=== PATIENT | male | born 1990 | race Caucasian/White ===

== ENCOUNTER 2017-02-25 18:47 | Inpatient (IN) | payer OTHER ==
--- NOTE | ~2017-02-25 | DS ---
Unit #: [id number] #: [id number] Patient: KASSI MORELAND [id number] [place] [address] [id number] I MR#: [id number] NAME: KASSI MORELAND ROOM: P184 Age: 27 Sex: M Admission Date: 02/25/2017 : 1990 Discharge Date: 02/28/2017 Attending Physician: Feliciano Romo M.D. Primary Care Physician: Primary Care Physician No DISCHARGE SUMMARY REASON FOR ADMISSION The patient is a 27-year-old single white male, admitted to the [facility] unit with a history of polysubstance dependence including abuse of methamphetamine, heroin, and benzodiazepines. HOSPITAL COURSE The patient was admitted to the [facility] unit and placed on routine detoxification protocol to cover opioids and benzodiazepines. He did have some psychosis on 02/27/2017 possibly thought to be related to delirium tremens or substance-induced psychosis. The symptoms had cleared. By 02/28/2017, the patient requested discharge from the hospital. He was at that point exhibiting no signs or symptoms of withdrawal and appeared to be at or near his psychiatric baseline. As per his request, discharge was ordered. FINAL DIAGNOSES Methamphetamine use disorder; opioid use disorder; sedative hypnotic use disorder. DISPOSITION ON DISCHARGE The patient is discharged on no psychotropic or other medications. FOLLOWUP Followup will take place through the auspices of community mental health resources. PROGNOSIS The patient's prognosis is considered fair. Dictated by... Feliciano Romo M.D. CB/malcolml TD: 02/28/2017 16:00 JOB #: [id number] Unit #: [id number] #: [id number] Patient: KASSI MORELAND DISCHARGE SUMMARY Page 1 of 1 X Feliciano Romo MD X DISCHARGE SUMMARY
--- NOTE | ~2017-02-25 | HP ---
Unit #: [id number] #: [id number] Patient: DEONTE MORELAND [id number] [place] [address] [id number] MR#: [id number] NAME: DEONTE MORELAND ROOM: P184 Age: 27 Sex: M Admission Date: 02/25/2017 : 1990 Attending Physician: Feliciano Romo M.D. Admitting Physician: Feliciano Romo M.D. Primary Care Physician: Primary Care Physician No HISTORY AND PHYSICAL HISTORY OF PRESENT ILLNESS Deonte is a 27 year old admitted to [facility] because of his continued drug use. He has had numerous admissions to this facility for treatment of the same. PAST MEDICAL HISTORY 1. Long history of polysubstance abuse to include IV heroin, benzodiazepines and methamphetamine. 2. History of withdrawal seizures. PAST SURGICAL HISTORY Nothing reported. ALLERGIES No known drug allergies. Eggs. SOCIAL HISTORY He smokes 1 pack per day. Drinks alcohol frequently. Has a long history of poly-illicit substance abuse to include IV drugs. FAMILY HISTORY Medically noncontributory. REVIEW OF SYSTEMS CONSTITUTIONAL: No fever or chills. HEENT: Denies any sore throat, ear pain or runny nose. CARDIOVASCULAR: Denies chest pain, irregular heart rhythm or palpitations. CHEST: Denies shortness of breath or cough. No hemoptysis. GASTROINTESTINAL: Denies nausea, vomiting, diarrhea or chronic constipation. ENDOCRINE: Denies history of increased thirst or urination. No recent significant weight loss or gain. GENITOURINARY: Denies dysuria, frequency, or hematuria. SKIN: Denies any rashes. HEMATOLOGIC: Denies history of increased bleeding or bruising. MUSCULOSKELETAL: Denies any hot, swollen joints. No generalized muscle pain. NEUROLOGIC: Denies problems with vision or speech. No frequent, severe headaches. No numbness, tingling or weakness in any extremities. Denies loss of bladder or bowel control. CURRENT MEDICATIONS Detox protocol. Unit #: [id number] #: [id number] Patient: DEONTE MORELAND PHYSICAL EXAMINATION GENERAL: Alert, well-nourished, in no apparent distress. VITAL SIGNS: Blood pressure 165/85, heart rate 80, respirations 16, temperature 98.6. WEIGHT: 200. HEIGHT: 6 feet 2 inches. SKIN: Warm and dry without rash or lesion. HEENT: Normocephalic. TMs not viewed. Oral and nasal passages clear. Conjunctivae clear. PERRLA. EOMs intact. NECK: Supple without lymphadenopathy or thyromegaly. HEART: Regular rate and rhythm without murmur. LUNGS: Clear. ABDOMEN: Soft, nontender. : Not done. EXTREMITIES: No evidence of cyanosis, clubbing or edema. Moves all without focal deficit. NEUROLOGICAL: Grossly within normal limits. Cranial Nerves: II: Visual sauer are intact. III, IV AND : Extraocular movements are intact. Pupils are equal, round and reactive to light. V: Facial sensation is grossly normal. VII: Facial movements and expression are normal. VIII: Auditory acuity grossly intact. IX, X: Uvula is midline. Phonation is normal. XI: Patient shrugs shoulders and turns head normally. XII: Tongue protrudes in the midline. Sensory and Motor Function: Sensory and motor sensation is grossly normal. Motor: moves all extremities well. Coordination: Gait is normal. Deep Tendon Reflexes: Intact. IMPRESSION Psychiatric admission. RECOMMENDATIONS PSYCHIATRIC: Per psychiatrist. MEDICAL: See no contraindications to participate in facility's activities. MEDICAL PROGNOSIS Good. MEDICAL CONDITION Stable. Dictated by... Kushal HawkAAnthony-Gena. for Madelyn Jimenez/jody TD: 02/26/2017 18:45 JOB #: [id number] Unit #: [id number] #: [id number] Patient: DEONTE MORELAND HISTORY AND PHYSICAL Page 1 of 1 X Tosin Mckeon HISTORY AND PHYSICAL
--- NOTE | ~2017-02-25 | PA ---
Unit #: [id number] #: [id number] Patient: KASSI MORELAND [id number] [place] [address] [id number] I MR#: [id number] NAME: KASSI MORELNAD ROOM: P184 Age: 27 Sex: M Admission Date: 02/25/2017 : 1990 Date of Assessment: 02/26/2017 Attending Physician: Feliciano Romo M.D. Admitting Physician: Feliciano Romo M.D. Primary Care Physician: Primary Care Physician No PSYCHIATRIC ASSESSMENT IDENTIFYING INFORMATION The patient is a 27-year-old white male admitted with recent relapse of substance use. INFORMANT(S) Patient. RELIABILITY Good. CHIEF COMPLAINT I relapsed. HISTORY OF PRESENT ILLNESS The patient is a 27-year-old white male well-known to this facility from multiple previous admissions to this facility. He stated that he had maintained sobriety up until 2 weeks ago when "somebody brought some stuff in." He states that he has been getting high ever since and is fearful that he will "lose everything" if he continues to use. He reports that he has been abusing alcohol, sedative/hypnotics, methamphetamine and heroin. The patient is currently denying suicide ideation. He [place] go [place] [facility] following completion of detox. For more complete history of present illness, please refer to previous dictated notes. PAST PSYCHIATRIC HISTORY Reviewed, no changes. FAMILY HISTORY/SOCIAL HISTORY Reviewed, no changes. MEDICAL HISTORY Reviewed, no changes. MEDICATION HISTORY None. ALLERGIES Thorazine, Haldol, latex, Risperdal. MENTAL STATUS EXAM At this time, reveals the patient to be a well-developed, well-nourished white male appearing stated age. He is in no apparent physical distress at time of examination. He is awake, alert, oriented in all spheres. His Unit #: [id number] #: [id number] Patient: KASSI MORELAND mood is mildly dysphoric. His affect congruent. Speech is generally relevant and coherent. There are no gross deficits in memory or cognition noted. Intelligence is judged to be in the average range based on fund of knowledge. The patient is cooperative throughout the interview. The patient reports positive suicidal ideation with plan to overdose. He denies homicidal ideation. He denies any psychotic symptoms. His judgement and insight appear to be intact. ASSETS AND LIABILITIES Patient's assets, motivation for change. Liabilities, lack of resources. ADMITTING DIAGNOSES 1. Dysthymic disorder. 2. Opioid use disorder. 3. Methamphetamine use disorder. 4. Sedative/hypnotic use disorder. 5. Alcohol use disorder. PSYCHIATRIC PLAN/TREATMENT GOALS The patient remains hospitalized for safety and stabilization. Routine detoxification protocol to cover benzodiazepines, alcohol and opiates have been initiated. The patient will participate in appropriate lira and milieu activities and suicide precautions are in place. ESTIMATED LENGTH OF STAY Five to seven days. Dictated by... Feliciano Romo M.D. DINA/jody TD: 02/26/2017 15:04 JOB #: [id number] PSYCHIATRIC ASSESSMENT Page 1 of 1 X Feliciano Romo MD X PSYCHIATRIC ASSESSMENT
--- NOTE | ~2017-02-25 | PN ---
Unit #: [id number] #: [id number] Patient: KASSI MORELAND [id number] [facility] [address] [place] [address] [id number] I MR#: [id number] NAME: KASSI MORELAND ROOM: P184 Age: 27 Sex: M Admission Date: 02/25/2017 : 1990 Attending Physician: Feliciano Romo M.D. Admitting Physician: Feliciano Romo M.D. Primary Care Physician: Primary Care Physician Lilibeth ORTIZ PROGRESS NOTES DATE 02/27/2017 DISCUSSION The patient is resting comfortably after requiring p.r.n. medication earlier this morning. His detox continues uneventfully and staff reports no management issues, but the patient was so anxious and as stated this morning the p.r.n. medication was required. Dictated by... Feliciano Romo M.D. CB/ti TD: 02/27/2017 15:13 JOB #: [id number] [facility] PROGRESS NOTES Page 1 of 1 X Feliciano Romo MD PROGRESS NOTE
[2017-02-27 09:53] LABS: URINE APPEARANCE TURBID; URINE BILIRUBIN NEG (NEG); URINE BLOOD NEG (NEG); URINE COLOR DK YELLOW; URINE GLUCOSE NEG (NEG); URINE KETONE TRACE (NEG); URINE LEUKOCYTE ESTERASE NEG (NEG); URINE NITRATE NEG (NEG); URINE PROTEIN NEG (NEG); URINE SPECIFIC GRAVITY 1.032 (1.003-1.035)
[2017-02-27 10:43] LABS: AMPHETAMINE POS (NEG); BARBITURATES NEG (NEG); BENZODIAZEPINES POS (NEG); COCAINE NEG (NEG); MARIJUANA NEG (NEG); OPIATES NEG (NEG); TRICYCLIC ANTIDEPRESSANTS NEG (NEG); U METHADONE NEG (NEG)
== END 2017-02-28 14:52 | DRG 897 ==
LOC: P1E 20:21
PROVIDERS: Specialist
PROC: HZ2ZZZZ Detoxification Services for Substance Abuse Treatment (ICD-10-PCS; principal; 2017-02-25)
DX: F11.10 Opioid abuse, uncomplicated (principal); R45.851 Suicidal ideations; F34.1 Dysthymic disorder; F15.10 Other stimulant abuse, uncomplicated; F13.10 Sedative, hypnotic or anxiolytic abuse, uncomplicated; F10.10 Alcohol abuse, uncomplicated; Z88.8 Allergy status to other drugs, medicaments and biological substances; Z91.040 Latex allergy status; F17.210 Nicotine dependence, cigarettes, uncomplicated; Z91.012 Allergy to eggs
CPT/HCPCS: 80307; 81003; 82947

== ENCOUNTER 2017-03-03 | Inpatient (IN) | payer OTHER ==
--- NOTE | ~2017-03-03 | HP ---
Unit #: [id number] #: [id number] Patient: KASSI MORELAND [id number] [place] [address] [id number] I MR#: [id number] NAME: KASSI MORELAND. ROOM: P201 Age: 27 Sex: M Admission Date: 03/03/2017 : 1990 Attending Physician: Feliciano Romo M.D. Admitting Physician: Feliciano Romo M.D. Primary Care Physician: Primary Care Physician No HISTORY AND PHYSICAL The patient is a 27-year-old male, admitted to [address] [place] [address] on 03/03/2017 for drug abuse. He has other admissions to this facility for the same most recently on 02/25/2017. The history and physical from that date was reviewed. No changes need to be made. Dictated by... Yara Reece/sammy TD: 03/04/2017 06:24 JOB #: [id number] HISTORY AND PHYSICAL Page 1 of 1 X SERGIO LOPEZ APRN HISTORY AND PHYSICAL
--- NOTE | ~2017-03-03 | DS ---
Unit #: [id number] #: [id number] Patient: KASSI MORELAND [id number] [facility] [address] [place] [address] [id number] I MR#: [id number] NAME: KASSI MORELAND. ROOM: [facility] Age: 27 Sex: M Admission Date: 03/03/2017 : 1990 Discharge Date: 03/04/2017 Attending Physician: Feliciano Romo M.D. DISCHARGE SUMMARY REASON FOR ADMISSION The patient is a 27-year-old white male, admitted to the [address] [place] [address] after he presented to this facility claiming to be suicidal following a recent discharge. HOSPITAL COURSE The patient was admitted to the [address] [place] [address] and placed on suicide precautions. Because of his recent discharge from the hospital, he was not restarted on any detoxification protocol and was placed on room lockout to assure safety. On 03/04/2017, the patient denied suicidal action and exhibited no signs or symptoms of withdrawal. He requested discharge and it was so ordered. During his stay in the hospital, the patient was diagnosed with an injection site abscess and will complete a 7-day trial of Bactrim following discharge. FINAL DIAGNOSES Opioid use disorder; sedative hypnotic use disorder; methamphetamine use disorder; dysthymic disorder; antisocial personality disorder; injection site abscess. DISPOSITION ON DISCHARGE The patient is discharged on the following medications: Bactrim DS one tablet b.i.d. for 7 days for injection site abscess. DISCHARGE INSTRUCTIONS No dietary or physical restrictions were placed upon the patient at the time of discharge. PROGNOSIS His prognosis remains guarded. Dictated by... Feliciano Romo M.D. CB/jocelin TD: 03/04/2017 14:39 JOB #: [id number] Unit #: [id number] #: [id number] Patient: KASSI MORELAND DISCHARGE SUMMARY Page 1 of 1 X Feliciano Romo MD X DISCHARGE SUMMARY
--- NOTE | ~2017-03-03 | PA ---
Unit #: [id number] #: [id number] Patient: KASSI MORELAND [id number] [place] [address] [id number] I MR#: [id number] NAME: KASSI MORELAND. ROOM: P201 Age: 27 Sex: M Admission Date: 03/03/2017 : 1990 Date of Assessment: 03/03/2017 Attending Physician: Feliciano Romo M.D. Admitting Physician: Feliciano Romo M.D. Primary Care Physician: Primary Care Physician No PSYCHIATRIC ASSESSMENT IDENTIFYING INFORMATION The patient is a 27-year-old white male admitted after he had presented to this facility claiming to be suicidal. CHIEF COMPLAINT "ya man I am suicidal." INFORMANT(S) Patient, reliability is poor. HISTORY OF PRESENT ILLNESS The patient is a 27-year-old white male discharged from this facility on 02/28/2017. At that time he stated to this physician that he planned to go a residential treatment facility in [place] instead he went out and immediately "got high" and has continued to using until his return to this facility early this morning . He is reporting positive suicidal ideation with plan to overdose or jump off of a bridge per his report. He states that in addition to heroin he has been using cocaine and methamphetamine. For more complete history of present illness, please refer to previous dictated notes. PAST PSYCHIATRIC HISTORY Reviewed, no changes. FAMILY HISTORY/SOCIAL HISTORY Reviewed, no changes. MEDICAL HISTORY Reviewed, no changes. MEDICATION Albuterol. ALLERGIES Chlorpromazine, haloperidol, latex, Risperdal. FAMILY HISTORY Reviewed no changes. SOCIAL HISTORY Reviewed no changes. MENTAL STATUS EXAM Unit #: [id number] #: [id number] Patient: KASSI MORELAND At this time, reveals the patient to be a well-developed, well-nourished white male appearing stated age. He is in absolutely no physical distress at time of examination. He is awake, alert, oriented in all spheres. His mood is mildly dysphoric and a tad irritable. His affect congruent. Speech is generally relevant and coherent. There are no gross deficits in memory or cognition noted. Intelligence is judged to be in the average range based on fund of knowledge. The patient is cooperative throughout the interview. He is currently endorsing positive suicidal ideation with a plan to overdose or jump from a bridge. He denies homicidal ideation. He denies any psychotic symptoms. His judgement and insight appear to be reasonably intact. ASSETS AND LIABILITIES ASSETS: To be assessed. LIABILITIES: Poor compliance with treatment, sociopathy. DIAGNOSTIC IMPRESSION 1. Dysthymic disorder 2. Methamphetamine use disorder. 3. Opioid use disorder. 4. Cocaine use disorder. 5. Antisocial personality disorder. PSYCHIATRIC PLAN/TREATMENT GOALS The patient remains hospitalized for safety and stabilization. I have not initiated any detoxification protocol as the patient's duration outside of the hospital is not sufficient to require reinitiation of any detoxification medicines. Instead we are focusing on the patient's symptoms of suicidal ideation and given his history of previous suicide attempts must take these seriously. Accordingly the patient has been placed on room lock out precautions to ensure his safety. The patient's expectations within the patient care are familiar redirected today. Dictated by... Feliciano Romo M.D. DINA/surya TD: 03/04/2017 03:20 JOB #: [id number] PSYCHIATRIC ASSESSMENT Page 1 of 1 X Feliciano Romo MD X PSYCHIATRIC ASSESSMENT
--- NOTE | ~2017-03-03 | CO ---
Unit #: [id number] #: [id number] Patient: KASSI MORELAND [id number] [place] [address] [id number] I MR#: [id number] NAME: KASSI MORELAND. ROOM: P201 Age: 27 Sex: M Admission Date: 03/03/2017 : 1990 Attending Physician: Feliciano Romo M.D. Primary Care Physician: Primary Care Physician No Consultation Date: 03/03/2017 CONSULTATION REPORT ORDERING PROVIDER Dr. Romo. REASON FOR CONSULT An abscess to the left antecubital area. SUBJECTIVE The patient reports that he was shooting methamphetamine and missed the vein. He immediately started having swelling and pain in that area with redness. He reports that it hurts to move his left arm. OBJECTIVE Approximately 3 cm area of induration noted on the left antecubital space, tender to palpation. It is hard to touch with positive streaking. ASSESSMENT Cellulitis related to methamphetamine injection. PLAN Plan is to start the patient on Bactrim. He can do ice to the area twice daily and ibuprofen for pain. Dictated by... Yara Reece/jocelin TD: 03/04/2017 04:33 JOB #: [id number] CONSULTATION REPORT Page 1 of 1 X SERGIO LOPEZ APRN CONSULTATION REPORT
== END 2017-03-04 17:00 | disposition home or self-care (01) | DRG 881 ==
LOC: P2S 04:41
PROC: HZ2ZZZZ Detoxification Services for Substance Abuse Treatment (ICD-10-PCS; principal; 2017-03-03)
DX: F34.1 Dysthymic disorder (principal); F11.10 Opioid abuse, uncomplicated; L03.114 Cellulitis of left upper limb; F60.2 Antisocial personality disorder; F15.10 Other stimulant abuse, uncomplicated; F14.10 Cocaine abuse, uncomplicated

== ENCOUNTER 2017-05-02 04:00 | Inpatient (IN) | payer OTHER ==
[~2017-05-02] VITALS: Ht 188 cm; Wt 83.9 kg
--- NOTE | ~2017-05-02 | DS ---
Unit #: [id number] #: [id number] Patient: KASSI MORELAND [id number] [place] [address] [id number] I MR#: [id number] NAME: KASSI MORELAND. ROOM: P175 Age: 27 Sex: M Admission Date: 05/02/2017 : 1990 Discharge Date: 05/03/2017 Attending Physician: Feliciano Romo M.D. Primary Care Physician: Generic Doctor Not In System DISCHARGE SUMMARY REASON FOR ADMISSION The patient is a 27-year-old white male, admitted with recurrent polysubstance abuse. HOSPITAL COURSE The patient was admitted to the [facility] unit and placed on routine detoxification protocol for opioids. His stay in the hospital was a brief and uneventful one. By 05/03/2017, the patient exhibited no signs or symptoms of withdrawal and requested discharge and it was so ordered. FINAL DIAGNOSES Methamphetamine use disorder; opioid use disorder; alcohol use disorder. DISPOSITION ON DISCHARGE The patient is discharged on no psychotropic or other medications. FOLLOWUP Followup will take place through the auspices of community mental health resources. PROGNOSIS The patient's prognosis is considered guarded. Dictated by... Feliciano Romo M.D. CB/jocelin TD: 05/05/2017 11:01 JOB #: [id number] DISCHARGE SUMMARY Page 1 of 1 X Feliciano Romo MD X DISCHARGE SUMMARY
--- NOTE | ~2017-05-02 | PA ---
Unit #: [id number] #: [id number] Patient: KASSI MORELAND [id number] [facility] [address] [place] [address] [id number] MR#: [id number] NAME: KASSI MORELAND. ROOM: P175 Age: 27 Sex: M Admission Date: 05/02/2017 : 1990 Date of Assessment: 05/02/2017 Attending Physician: Feliciano Romo M.D. Admitting Physician: Feliciano Romo M.D. Primary Care Physician: Generic Doctor Not In System PSYCHIATRIC ASSESSMENT IDENTIFYING INFORMATION The patient is a 27-year-old white male admitted with reporting polysubstance dependence and suicidal ideation. CHIEF COMPLAINT None given. INFORMANT Chart, the patient will not arouse for interview. HISTORY OF PRESENT ILLNESS The patient is a 27-year-old white male with a long and well-documented history of IV drug abuse. He was last discharged from this facility in February of this year. He is admitted after presenting to this facility reporting that he is using Xanax, heroin and methamphetamine as well as alcohol. The patient reports that he attempted to overdose two days ago. The patient was reportedly required Narcan at [facility] after this happened. The patient had left this facility last time and [place] [facility] [place] but remains sober for only about four days. He also admits to abuse of crack cocaine. For more complete history of present illness please refer to previously dictated notes. PAST PSYCHIATRIC HISTORY Reviewed no changes. PAST MEDICAL HISTORY Reviewed no changes. MEDICATIONS None. ALLERGIES Thorazine, Haldol, latex, Risperdal. FAMILY HISTORY Reviewed no changes. SOCIAL HISTORY Reviewed no changes. MENTAL STATUS EXAMINATION At this time reveals the patient to be a disheveled soundly sleeping white Unit #: [id number] #: [id number] Patient: KASSI MORELAND male who cannot be aroused for further interview. Patient's assets to be assessed. Liabilities poor compliance to treatment. DIAGNOSTIC IMPRESSION Alcohol use disorder, opioid use disorder, methamphetamine use disorder, cocaine use disorder, cannabis use disorder, antisocial personality disorder. TREATMENT PLAN The patient remains hospitalized for safety and stabilization. We will watch for signs and symptoms of withdrawal and suicidal precautions are in place. ESTIMATED LENGTH STAY IN THE HOSPITAL Three to four days with followup to take place through the auspices of community mental health resources. Dictated by... Feliciano Romo M.D. DINA/surya TD: 05/02/2017 19:39 JOB #: [id number] PSYCHIATRIC ASSESSMENT Page 1 of 1 X Feliciano Romo MD X PSYCHIATRIC ASSESSMENT
--- NOTE | ~2017-05-02 | HP ---
Unit #: [id number] #: [id number] Patient: DEONTE MORELAND [id number] [place] [address] [id number] MR#: [id number] NAME: DEONTE MORELAND. ROOM: P175 Age: 27 Sex: M Admission Date: 05/02/2017 : 1990 Attending Physician: Feliciano Romo M.D. Admitting Physician: Feliciano Romo M.D. Primary Care Physician: Krystle Doctor Not In System HISTORY AND PHYSICAL HISTORY OF PRESENT ILLNESS Deonte is a 27 year old admitted to [facility] because of his continued drug use. PAST MEDICAL HISTORY 1. Long history of poly illicit substance abuse to include IV heroin, benzodiazepines and methamphetamine. 2. History of withdrawal seizures. PAST SURGICAL HISTORY Nothing reported. ALLERGIES No known drug allergies. Eggs. SOCIAL HISTORY Smokes one pack per day. Drinks alcohol frequently. Has a long history of illicit substance abuse to include IV drugs. FAMILY HISTORY Medically noncontributory. REVIEW OF SYSTEMS CONSTITUTIONAL: No fever or chills. HEENT: Denies any sore throat, ear pain or runny nose. CARDIOVASCULAR: Denies chest pain, irregular heart rhythm or palpitations. CHEST: Denies shortness of breath or cough. No hemoptysis. GASTROINTESTINAL: Denies nausea, vomiting, diarrhea or chronic constipation. ENDOCRINE: Denies history of increased thirst or urination. No recent significant weight loss or gain. GENITOURINARY: Denies dysuria, frequency, or hematuria. SKIN: Denies any rashes. HEMATOLOGIC: Denies history of increased bleeding or bruising. MUSCULOSKELETAL: Denies any hot, swollen joints. No generalized muscle pain. NEUROLOGIC: Denies problems with vision or speech. No frequent, severe headaches. No numbness, tingling or weakness in any extremities. Denies loss of bladder or bowel control. CURRENT MEDICATIONS Detox protocol. Unit #: [id number] #: [id number] Patient: DEONTE MORELAND PHYSICAL EXAMINATION GENERAL: Alert, well-nourished, in no apparent distress. VITAL SIGNS: Blood pressure 150/100, heart rate 80, respirations 16, temperature 98.6. WEIGHT: 185. HEIGHT: 6 foot 2 inches. SKIN: Warm and dry without rash or lesion. HEENT: Normocephalic. TMs not viewed. Oral and nasal passages clear. Conjunctivae clear. Pupils equal, round and reactive to light and accommodation. Extraocular movements intact. NECK: Supple without lymphadenopathy or thyromegaly. HEART: Regular rate and rhythm without murmur. LUNGS: Clear. ABDOMEN: Soft, nontender. : Not done. EXTREMITIES: No evidence of cyanosis, clubbing or edema. Moves all extremities without focal deficit. NEUROLOGICAL: Grossly within normal limits. Cranial Nerves: II: Visual sauer are intact. III, IV AND : Extraocular movements are intact. Pupils are equal, round and reactive to light. V: Facial sensation is grossly normal. VII: Facial movements and expression are normal. VIII: Auditory acuity grossly intact. IX, X: Uvula is midline. Phonation is normal. XI: Patient shrugs shoulders and turns head normally. XII: Tongue protrudes in the midline. Sensory and Motor Function: Sensory and motor sensation is grossly normal. Motor: moves all extremities well. Coordination: Gait is normal. Deep Tendon Reflexes: Intact. IMPRESSION Psychiatric admission. RECOMMENDATIONS PSYCHIATRIC: Per psychiatrist. MEDICAL: I see no contraindications to participating in facility's activities. MEDICAL PROGNOSIS Good. MEDICAL CONDITION Stable. Dictated by... Tosin Mckeon PAnthonyAAnthony-Gena. for Madelyn Jimenez/surya TD: 05/03/2017 01:04 JOB #: [id number] Unit #: [id number] #: [id number] Patient: DEONTE MORELAND HISTORY AND PHYSICAL Page 1 of 1 X Tosin Mckeon HISTORY AND PHYSICAL
[2017-05-03 09:46] LABS: BASOPHIL% 0.3 % (0-2.5); EOSINOPHIL# 0.2 X10e3 (0-0.7); EOSINOPHIL% 3.6 % (0.0-7.0); HEMATOCRIT 43.4 % (38.0-50.0); LYMPHOCYTE# 1.7 X10e3 (1.0-3.5); LYMPHOCYTE% 36.1 % (17.0-45.0); MEAN CELL VOLUME 85.4 FL (83-96); MEAN CORPUSCULAR HEMOGLOBIN 29.6 PG (28-34); MEAN CORPUSCULAR HGB CONC 34.6 g/dL (30-36); MEAN PLATELET VOLUME 7.8 FL (6.5-11.5); MONOCYTE# 0.5 X10e3 (0-1.0); MONOCYTE% 11.2 % (3.0-12.0); NEUTROPHIL# 2.3 X10e3 (1.5-7.1); NEUTROPHIL% 48.8 % (40-75); PLATELET COUNT 207 X10e3 (140-420); RED BLOOD COUNT 5.09 X10e (3.90-5.60); WHITE BLOOD COUNT 4.8 X10e3 (4.0-10.5)
[2017-05-03 09:54] LABS: ALBUMIN SERUM 3.7 g/dL (3.5-5.0); BILIRUBIN,TOTAL 0.8 mg/dL (0.2-2.0); CALCIUM SERUM 9.2 mg/dL (8.4-10.2); POTASSIUM 3.9 mmol/L (3.5-5.1); PROTEIN TOTAL SERUM 5.7 g/dL (6.0-8.3)
[2017-05-03 09:59] LABS: DIFF IND NO
== END 2017-05-03 15:40 | disposition home or self-care (01) | DRG 897 ==
LOC: P1E 06:44
PROVIDERS: Specialist
PROC: HZ2ZZZZ Detoxification Services for Substance Abuse Treatment (ICD-10-PCS; principal; 2017-05-02)
DX: F10.20 Alcohol dependence, uncomplicated (principal); F11.20 Opioid dependence, uncomplicated; F15.20 Other stimulant dependence, uncomplicated; F60.2 Antisocial personality disorder
CPT/HCPCS: 80053; 85025; 86592

== ENCOUNTER 2017-06-08 04:00 | Inpatient (IN) | payer OTHER ==
[~2017-06-08] VITALS: Ht 188 cm; Wt 81.6 kg
--- NOTE | ~2017-06-08 | PA ---
Unit #: [id number] #: [id number] Patient: KASSI MORELAND [id number] [place] [address] [id number] MR#: [id number] NAME: KASSI MORELAND. ROOM: P181 Age: 27 Sex: M Admission Date: 06/08/2017 : 1990 Date of Assessment: 06/08/2017 Attending Physician: Feliciano Romo M.D. Admitting Physician: Feliciano Romo M.D. Primary Care Physician: Generic Doctor Not In System PSYCHIATRIC ASSESSMENT IDENTIFYING INFORMATION The patient is a 27-year-old white male admitted to the [address] [place] [address] with recurrence use of methamphetamine, heroin and crack cocaine. INFORMANT(S) Patient. RELIABILITY Fair. CHIEF COMPLAINT None given. HISTORY OF PRESENT ILLNESS The patient is a 27-year-old white male well-known to this facility with a history of polysubstance dependence. He is readmitted voicing positive suicidal ideation and reporting withdrawal symptoms from opioids and sedative hypnotics. The patient's blood pressure on admission was 152/101 and his pulse 128. The patient admits to recent relapse and states related to a relationship breakup. He states he is currently homeless. He has been using intravenous heroin, methamphetamine as well as Xanax and alcohol. The patient claims that after his last discharge from this facility, he completed a 28 day course at [facility], then went for several days at a facility in [place]. This is belie by the fact that the patient's only been out of the hospital for about 37 days. Whatever the case, the patient continues to endorse positive suicidal ideation when seen today. For a more complete history of present illness, please refer to previous dictated notes. PAST PSYCHIATRIC HISTORY Reviewed, no changes. FAMILY HISTORY/SOCIAL HISTORY Reviewed, no changes. MEDICAL HISTORY Reviewed, no changes. MEDICATION HISTORY 1. Omeprazole. 2. Linzess. ALLERGIES Unit #: [id number] #: [id number] Patient: KASSI MORELAND Chlorpromazine, Haldol, latex, Risperdal. MENTAL STATUS EXAM At this time, reveals the patient to be a well-developed, well-nourished white male appearing his stated age. He is in no apparent physical distress at time of examination. He is awake, alert, oriented in all spheres. His mood is mildly dysphoric. His affect congruent. Speech is generally relevant and coherent. There are no gross deficits in memory or cognition noted. Intelligence is judged to be in the average range based on fund of knowledge. The patient is cooperative throughout the interview. He is currently denying suicidal/homicidal ideation or psychotic features. Judgement and insight appear to be intact. ASSETS AND LIABILITIES Patient's assets, motivation for change. Liabilities, lack of resources. DIAGNOSTIC IMPRESSION 1. Alcohol use disorder. 2. Sedative/hypnotic use disorder. 3. Cocaine use disorder. 4. Methamphetamine use disorder. 5. Cannabis use disorder. 6. Antisocial personality disorder. 7. Irritable bowel syndrome. 8. Gastroesophageal reflux disease. PSYCHIATRIC PLAN/TREATMENT GOALS The patient remains hospitalized for safety and stabilization. We will place the patient on routine detoxification protocol to cover both opioids and sedative/hypnotics and alcohol. The patient will participate in appropriate lira and milieu activities and we will look towards possible residential referral for residential chemical dependence treatment. ESTIMATED LENGTH OF STAY Three to five days. Dictated by... Feliciano Romo M.D. DINA/jody TD: 06/08/2017 12:39 JOB #: [id number] PSYCHIATRIC ASSESSMENT Page 1 of 1 X Feliciano Romo MD X PSYCHIATRIC ASSESSMENT
--- NOTE | ~2017-06-08 | DS ---
Unit #: [id number] #: [id number] Patient: KASSI MORELAND [id number] [facility] [address] [place] [address] [id number] I MR#: [id number] NAME: KASSI MORELAND. ROOM: P181 Age: 27 Sex: M Admission Date: 06/08/2017 : 1990 Discharge Date: Attending Physician: Feliciano Romo M.D. Primary Care Physician: Generic Doctor Not In System DISCHARGE SUMMARY REASON FOR ADMISSION The patient is a 27-year-old white male, admitted with recurrent abuse of methamphetamine, opioids, and alcohol. HOSPITAL COURSE The patient was admitted to the [address] [place] [address] unit and placed on routine detoxification protocol to cover both opioids and alcohol. His stay in the hospital was a brief and uneventful one. By 06/11/2017, the patient requested discharge and it was so ordered. FINAL DIAGNOSES Alcohol use disorder; methamphetamine use disorder; opioid use disorder; antisocial personality disorder. DISPOSITION ON DISCHARGE The patient is discharged on the following medications; Protonix 40 mg once daily for GERD, Linzess 145 mcg daily for irritable bowel syndrome. DISCHARGE INSTRUCTIONS No dietary or physical restrictions were placed on the patient at the time of discharge. FOLLOWUP Followup will take place through the auspices of community mental health and chemical dependency treatment resources. PROGNOSIS The patient's prognosis is considered fair. Dictated by... Feliciano Romo M.D. CB/jocelin TD: 06/11/2017 23:39 JOB #: [id number] Unit #: [id number] #: [id number] Patient: KASSI MORELAND DISCHARGE SUMMARY Page 1 of 1 X Feliciano Romo MD X DISCHARGE SUMMARY
--- NOTE | ~2017-06-08 | DS ---
Unit #: [id number] #: [id number] Patient: KASSI MORELAND [id number] [facility] [address] [place] [address] [id number] I MR#: [id number] NAME: KASSI MORELAND. ROOM: P181 Age: 27 Sex: M Admission Date: 06/08/2017 : 1990 Discharge Date: 06/12/2017 Attending Physician: Feliciano Romo M.D. Primary Care Physician: Generic Doctor Not In System DISCHARGE SUMMARY REASON FOR ADMISSION The patient is a 27-year-old white male, admitted following a relapse of methamphetamine and heroin use. HOSPITAL COURSE The patient was admitted to the [facility] unit and placed on routine detoxification protocol for opioids. His stay in the hospital was fairly typical with his participating to no significant degree within the therapeutic milieu. On 06/12/2017, the patient stated that he was going to [facility]; however, staff had learned that the patient has actually made arrangements to stay with an elderly female peer whom he had met on the unit. She was warned of the inadvisability of taking a patient into her home prior to discharge. FINAL DIAGNOSES Opioid use disorder; methamphetamine use disorder; and antisocial personality disorder. DISPOSITION ON DISCHARGE No psychotropic medications were ordered at the time of discharge. It will be recommended that the patient continue previously prescribed Linzess 145 mcg daily for irritable bowel syndrome and Protonix 40 mg daily for GERD. DISCHARGE INSTRUCTIONS No dietary or physical restrictions were placed on the patient at the time of discharge. PROGNOSIS His prognosis remains guarded. Dictated by... Feliciano Romo M.D. CB/jocelin TD: 06/12/2017 20:05 JOB #: [id number] Unit #: [id number] #: [id number] Patient: KASSI MORELAND DISCHARGE SUMMARY Page 1 of 1 X Feliciano Romo MD X DISCHARGE SUMMARY
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
--- NOTE | ~2017-06-08 | PN ---
Unit #: [id number] #: [id number] Patient: KASSI MORELAND [id number] [facility] [address] [place] [address] [id number] I MR#: [id number] NAME: KASSI MORELAND. ROOM: P181 Age: 27 Sex: M Admission Date: 06/08/2017 : 1990 Attending Physician: Feliciano Romo M.D. Admitting Physician: Feliciano Romo M.D. Primary Care Physician: Krystle Doctor Not In System [facility] PROGRESS NOTES DATE 06/09/2017 DISCUSSION The patient is abed resting comfortably today. Staff reports no management issues but that his participation within the therapeutic has been less than optimal. Dictated by... Feliciano Romo M.D. CB/surya TD: 06/10/2017 00:40 JOB #: [id number] [facility] PROGRESS NOTES Page 1 of 1 X Feliciano Romo MD X PROGRESS NOTE
[2017-06-09 11:21] LABS: ALBUMIN SERUM 3.9 g/dL (3.5-5.0); BILIRUBIN,TOTAL 0.7 mg/dL (0.2-2.0); BUN/CREATININE RATIO 28.57; CALCIUM SERUM 8.8 mg/dL (8.4-10.2); CREATININE SERUM 0.7 mg/dL (0.6-1.4); GLOM FILT RATE Estimated 128.5 mL/min (>60); POTASSIUM 3.9 mmol/L (3.5-5.1); PROTEIN TOTAL SERUM 5.9 g/dL (6.0-8.3)
[2017-06-09 12:37] LABS: BASOPHIL% 0.3 % (0-2.5); EOSINOPHIL# 0.1 X10e3 (0-0.7); EOSINOPHIL% 3.8 % (0.0-7.0); HEMATOCRIT 41.1 % (38.0-50.0); HEMOGLOBIN 14.3 gm/dL (13.0-16.0); LYMPHOCYTE# 1.2 X10e3 (1.0-3.5); LYMPHOCYTE% 31.2 % (17.0-45.0); MEAN CORPUSCULAR HEMOGLOBIN 29.5 PG (28-34); MEAN CORPUSCULAR HGB CONC 34.7 g/dL (30-36); MEAN PLATELET VOLUME 7.9 FL (6.5-11.5); MONOCYTE# 0.5 X10e3 (0-1.0); MONOCYTE% 14.1 % (3.0-12.0); NEUTROPHIL# 1.9 X10e3 (1.5-7.1); NEUTROPHIL% 50.6 % (40-75); PLATELET COUNT 157 X10e3 (140-420); RED BLOOD COUNT 4.84 X10e (3.90-5.60); RED CELL DISTRIBUTION WIDTH 13.6 % (11.0-15.5); WHITE BLOOD COUNT 3.8 X10e3 (4.0-10.5)
[2017-06-09 12:46] LABS: DIFF IND NO
[2017-06-11 12:53] LABS: URINE APPEARANCE CLEAR; URINE BILIRUBIN NEG (NEG); URINE BLOOD NEG (NEG); URINE COLOR YELLOW; URINE GLUCOSE NEG (NEG); URINE KETONE NEG (NEG); URINE LEUKOCYTE ESTERASE NEG (NEG); URINE NITRATE NEG (NEG); URINE PROTEIN NEG (NEG); URINE SPECIFIC GRAVITY 1.024 (1.003-1.035); URINE UROBILINOGEN 0.2 MG/DL (NEG)
[2017-06-11 13:10] LABS: AMPHETAMINE POS (NEG); BARBITURATES NEG (NEG); BENZODIAZEPINES NEG (NEG); COCAINE POS (NEG); MARIJUANA POS (NEG); OPIATES NEG (NEG); TRICYCLIC ANTIDEPRESSANTS NEG (NEG); U METHADONE NEG (NEG)
== END 2017-06-12 15:23 | DRG 897 ==
LOC: P1E 05:35
PROVIDERS: Specialist
PROC: HZ2ZZZZ Detoxification Services for Substance Abuse Treatment (ICD-10-PCS; principal; 2017-06-08)
DX: F10.10 Alcohol abuse, uncomplicated (principal); F14.10 Cocaine abuse, uncomplicated; F13.10 Sedative, hypnotic or anxiolytic abuse, uncomplicated; F15.10 Other stimulant abuse, uncomplicated; F12.10 Cannabis abuse, uncomplicated; F60.2 Antisocial personality disorder; K58.9 Irritable bowel syndrome, unspecified; K21.9 Gastro-esophageal reflux disease without esophagitis; Z91.040 Latex allergy status
CPT/HCPCS: 80053; 80307; 81003; 85025; 86592